=== PATIENT | male | born 1965 | race Caucasian/White ===

== ENCOUNTER 2018-08-09 15:09 | Emergency (ER) | payer BC ==
--- OUTSIDE RECORDS SUMMARY | 2018-08-09 15:23 | XMS REPORT | Continuity of Care Document ---
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 Payers Date Identification Numbers Payment Provider Subscriber Effective: 2017 Policy Number: [id number] [employer] Christiano Hernandez PayID: [id number] [address] [address] [place] Schultz [id number] Advance Directives Description No Information Available Problems Active Problems Provider Date Malignant neoplasm of eye Onset: 12/25/2017 Implantation of mitral valve prosthesis or synthetic Onset: 12/25/2017 device Chronic atrial fibrillation Onset: 02/25/2015 Pure hypercholesterolemia Onset: 04/19/2011 Allergic rhinitis Onset: 04/19/2011 Contact dermatitis Onset: 04/19/2011 Mitral valve disorder Onset: 04/19/2011 Atrial fibrillation Onset: 04/19/2011 Malignant melanoma of eye ANGEL Browning Onset: 07/03/2018 Shigellosis ANGEL Browning Onset: 07/03/2018 Rectal hemorrhage ANGEL Browning Onset: 07/03/2018 Hemorrhoids ANGEL Browning Onset: 07/03/2018 Family History Date Family Member(s) Observation Comments General Father DM Father Hypertension Father Gout Father hyperlipidemia Mother Hypertension Mother Diabetes Mother Hyperlipidemia Siblings 3 Social History Type Date Description Comments Sex Unknown Lives With Girlfriend 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, 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 [employer] ETOH Use Denies alcohol use Tobacco Use Start: Unknown Patient has never smoked Recreational Drug Use Denies Drug Use Smoking Status Reviewed: 07/08/18 Patient has never smoked Exercise Type/Frequency Exercises regularly Allergies, Adverse Reactions, Alerts Active Allergies Reaction Severity Comments Date Rosuvastatin Calcium Free Text 03/15/2018 Fish Oil 03/15/2018 Atorvastatin 03/15/2018 Zmax 07/03/2018 Medications Active Medications SIG Qnty Indications Ordering Provider Date Vitamin C Plus 1 by mouth Devin Tomas, 09/05/2017 500mg every day Tablets Claritin 1 by mouth 30caps J30.9 Devin Tomas 10/25/2011 10mg Capsules every day Digoxin 1 tab by mouth Dariela Sandoval 04/19/2011 250mcg Tablets every day SHANIA Carr Ramipril Unknown 2.5mg Capsules Atenolol 1 by mouth 30tabs Devin Tomas, 50mg Tablets every day Coumadin 1 tab by mouth Unknown 5mg Tablets Mon, Wed, Thur, Sat, Sun History Medications Amoxicillin 1 by mouth twice 20tabs H66.92 Devin 08/01/2017 - 875mg a day MD Genoveva 09/05/2017 Tablets Azithromycin Error, don't fill 6tabs J06.9 Devin 03/21/2016 - 250mg this script will MD Genoveva 06/19/2016 Tablets try amoxicillin Ibuprofen one 4 times a day 30tabs J06.9 Devin 03/21/2016 - 600mg with food MD Genoveva 06/19/2016 Tablets Amoxicillin 1 by mouth three 30caps J06.9 Devin 03/21/2016 - 500mg times a day MD Genoveva 06/19/2016 Capsules Ativan 1/2 tab by mouth 10tabs Devin 03/21/2016 - 1mg Tablets four times a day MD Genoveva 03/21/2016 as needed Ativan 1 tab every 4 30tabs Devin 03/21/2016 - 0.5mg hours if needed MD Genoveva 06/19/2016 Tablets to break an anxiety attack Anusol-HC one suppository 12units K62.5 Devin 06/16/2015 - 25mg inserted into MD Genoveva 08/27/2015 Suppository rectum twice a day for bleeding Azithromycin 2 tablets day one 6tabs J20.9 Devin 03/24/2015 - 250mg then one tablet MD Genoveva 05/27/2015 Tablets day2 thru day 5 Amoxicillin 4 pills 1 hr 30caps Devin 10/26/2014 - 500mg prior to dental MD Genoveva 03/24/2015 Capsules work Valium 1 tab by mouth Jaime 05/15/2012 - 5mg Tablets three times a day Dariela Carr NP 05/15/2012 as needed Ativan 1/2 tab by mouth 10tabs Devin 05/15/2012 - 1mg Tablets four times a day MD Genoveva 10/06/2013 as needed Triamcinolone use 1-2 sprays 16.5units Jaime 10/18/2011 - Acetonide twice a day into Dariela Carr NP 07/03/2018 55mcg/Act each nostril if Aerosol needed Coumadin Jaime, 04/19/2011 - 7.5mg Dariela Carr NP 06/09/2014 Tablets Folic Acid 1 tab by mouth Jaime 04/19/2011 - 1mg every day Dariela Carr NP 10/25/2011 Tablets Claritin 1 po qd 30caps Jaime, 04/19/2011 - 10mg Dariela Carr NP 10/25/2011 Capsules DesDevni Worley 04/19/2011 - 0.05% 12/25/2017 Cream Crestor 1 po qd 30tabs Jaime, - 5mg Tablets Dariela Carr NP 05/15/2012 Miralax 1 scoop in fluid 238units Unknown - [id number] by mouth every 09/05/2017 Powder day as needed Metamucil Free & Unknown - Natural 07/03/2018 43% Powder Chlorhexidine Unknown - Gluconate 07/03/2018 0.12% Solution Immunizations CPT Code Status Date Vaccine Lot # [id number] Given 01/06/2014 Influenza Virus 3Yrs & Over [id number] Given 11/26/2012 Influenza Virus 3Yrs & Over [id number] Given 12/02/2009 Influenza Virus 3Yrs & Over [id number] Given 09/02/2009 Tdap - Tetanus/Diptheria/Acellular Pertussis 20832 Given 01/20/2009 Administration Swine Flu Shot Vital Signs Date Vital Result Comment 07/22/2018 3:13pm Weight 164.44 lb BP Systolic Sitting 118 mmHg BP Diastolic Sitting 50 mmHg 07/03/2018 1:34pm Height 66.6 inches 5'6.60" Weight 160.00 lb BP Systolic Sitting 124 mmHg BP Diastolic Sitting 60 mmHg Respiratory Rate 14 /min Body Temperature 98.8 F BMI (Body Mass Index) 25.4 kg/m2 04/29/2018 4:16pm Weight 157.00 lb BP Systolic Sitting 124 mmHg BP Diastolic Sitting 70 mmHg 02/25/2018 3:18pm Weight 157.00 lb BP Systolic 126 mmHg BP Diastolic 76 mmHg 12/25/2017 3:49pm Weight 156.00 lb BP Systolic 123 mmHg BP Diastolic 78 mmHg 09/18/2017 4:55pm Height 67 inches Weight 152.00 lb Heart Rate 110 /min BP Systolic 128 mmHg BP Diastolic 67 mmHg BMI (Body Mass Index) 23.8 kg/m2 09/05/2017 2:30pm Weight 153.00 lb BP Systolic 140 mmHg BP Diastolic 80 mmHg 08/01/2017 3:41pm Weight 152.00 lb BP Systolic 134 mmHg BP Diastolic 80 mmHg 06/20/2017 3:21pm Height 66.6 inches Weight 154.00 lb Heart Rate 80 /min BP Systolic 134 mmHg BP Diastolic 80 mmHg Respiratory Rate 12 /min Body Temperature 97.6 F BMI (Body Mass Index) 24.4 kg/m2 12/21/2016 3:06pm Weight 154.00 lb BP Systolic 130 mmHg BP Diastolic 80 mmHg 09/19/2016 3:23pm Weight 156.00 lb BP Systolic 130 mmHg BP Diastolic 80 mmHg 06/19/2016 3:24pm Height 66.6 inches Weight 151.00 lb Heart Rate 70 /min BP Systolic 138 mmHg BP Diastolic 80 mmHg Respiratory Rate 12 /min Body Temperature 97.0 F BMI (Body Mass Index) 23.9 kg/m2 03/21/2016 10:40am Weight 159.00 lb Body Temperature 99.6 F 02/24/2016 3:53pm Weight 163.00 lb 11/25/2015 3:30pm Weight 150.00 lb BP Systolic 134 mmHg BP Diastolic 78 mmHg 08/26/2015 4:29pm Weight 145.00 lb BP Systolic 130 mmHg BP Diastolic 74 mmHg 06/30/2015 3:48pm Weight 162.00 lb BP Systolic 130 mmHg BP Diastolic 80 mmHg 06/16/2015 3:21pm Height 60.6 inches Weight 159.00 lb Heart Rate 70 /min Respiratory Rate 14 /min Body Temperature 98.8 F BMI (Body Mass Index) 30.4 kg/m2 05/27/2015 4:02pm Weight 160.00 lb BP Systolic 128 mmHg BP Diastolic 78 mmHg 03/24/2015 10:15am Weight 160.00 lb Heart Rate 121 /min BP Systolic 144 mmHg BP Diastolic 80 mmHg Body Temperature 99.0 F 02/25/2015 4:15pm Weight 157.00 lb BP Systolic 140 mmHg BP Diastolic 80 mmHg 10/26/2014 3:44pm Weight 148.00 lb BP Systolic 134 mmHg BP Diastolic 78 mmHg 06/09/2014 3:46pm Height 60.6 inches Weight 150.00 lb Heart Rate 78 /min BP Systolic 150 mmHg BP Diastolic 80 mmHg Respiratory Rate 14 /min Body Temperature 98.8 F BMI (Body Mass Index) 28.7 kg/m2 01/06/2014 4:04pm Weight 146.00 lb BP Systolic 130 mmHg BP Diastolic 80 mmHg 10/06/2013 3:53pm Weight 151.00 lb BP Systolic 160 mmHg BP Diastolic 80 mmHg 10/06/2013 4:36pm BP Systolic 134 mmHg BP Diastolic 82 mmHg 07/07/2013 4:17pm Weight 154.00 lb BP Systolic 130 mmHg BP Diastolic 80 mmHg 02/27/2013 4:17pm Weight 156.00 lb BP Systolic 130 mmHg BP Diastolic 66 mmHg 11/26/2012 4:04pm Weight 154.00 lb BP Systolic 130 mmHg BP Diastolic 60 mmHg 05/15/2012 3:40pm Height 66.25 inches Weight 147.00 lb BP Systolic 114 mmHg BP Diastolic 70 mmHg BMI (Body Mass Index) 23.5 kg/m2 10/25/2011 3:39pm Weight 160.00 lb BP Systolic 140 mmHg BP Diastolic 84 mmHg 04/19/2011 4:11pm Weight 155.00 lb BP Systolic 140 mmHg BP Diastolic 80 mmHg 04/19/2011 4:14pm Height 66 inches Weight 155.00 lb BP Systolic 140 mmHg BP Diastolic 80 mmHg BMI (Body Mass Index) 25.0 kg/m2 Results Test Date Facility Test Result H/L Range Note Laboratory test 01/02/2018 N2N/CCD Import Atypical Lymph% 7 % 0-7 1 finding Band% 1 % 0-8 Eosinophil% 3 % 0-5 Lymph% 13 % Low 20-42 Monocyte% 13 % High 0-10 Neutrophils% 63 % 33-73 Platelet Estimate Normal RBC Morphology Normal Slide Review Diff Ordered Total Cells Counted 100 #CELLS Basic Metabolic Panel 01/02/2018 N2N/CCD Import Anion Gap 6 mEq/L Low 8- 16 BUN 27 mg/dL High 7-18 BUN/Creat 30.0 ratio Calcium 8.6 mg/dL 8.5-10.1 Carbon Dioxide 27 mmol/L 21-32 Chloride 104 mmol/L 98-107 Creatinine 0.9 mg/dL 0.6-1.3 Glom Filtration Rate, Estimate >60 mL/min Glucose 95 mg/dL 74-106 If >60 mL/min 2 Potassium 4.4 mmol/L 3.5-5.1 Sodium 137 mmol/L 136-145 CBS W/Automated Diff 01/02/2018 N2N/CCD Import Bas% 0.4 % 0-1.1 Baso # 0.04 K/uL 0-0.1 Eo% 2.9 % 0-6.6 Eos # 0.27 K/uL 0-0.5 Hematocrit 39.6 % 38-48 Hemoglobin 13.4 gm/dL 12.8-17 Lymph # 2.18 K/uL 1-4 Lymph % 23.1 % 20-42 Mean Cell Volume 90.0 fl 80-96 Mean Corpuscular HGB 30.5 pg 27-33 Mean Corpuscular HGB Conc 33.8 g/dL 31.7-36 Mean Platelet Volume 9.1 fL 6.6-10.6 Laurel # 1.12 K/uL High 0-0.8 Laurel % 11.9 % High 0-10 Neut# 5.83 K/uL 1.8-7 Neut% 61.7 % 33-73 Platelet Count 266 K/uL 155-360 Red Blood Count 4.40 M/uL 4.2-5.8 Red Cell Distri Width %CV 13.7 % 11.6-15.8 Red Cell Distri Width SD 44.0 fl 36-51 White Blood Count 9.4 K/uL 3.4-10.5 Liver Function Panel 01/02/2018 N2N/CCD Import Alb/Glob 1.0 ratio Albumin 4.0 g/dL 3.4-5 Alkaline Phosphatase 134 U/L High 45-117 Bilirubin,Direct < 0.1 mg/dL 0-0.2 Bilirubin,Indirect 0.2 mg/dL 0-0.9 Bilirubin,Total 0.3 mg/dL 0.2-1 Globulin 4.0 g/dL 1.9-4.3 SGPT/Alt 47 U/L 12-78 Sgot/Ast 31 U/L 15-37 Total Protein 8.0 g/dL 6.4-8.2 Protime 12/20/2017 N2N/CCD Import Anticoagulant Therapy? Yes Date of Last Dose: 12/19/17 Inr 2.8 1 High 0.9-1.1 3 Protime 28.8 s High 12-14.4 Time of Last Dose: 8:00PM Laboratory test finding 04/20/2017 N2N/CCD Import Source: Urine, Clean Cat 4, 5 <See Note> Urine Bilirubin - Dipstick Negative Urine Blood Trace Urine Clarity Clear Urine Color Yellow Urine Glucose - Dipstick Negative mg/dL Urine Ketone Trace mg/dL High Urine Leuk Esterase Negative Urine Nitrite - Dipstick Negative Urine PH 6.0 1 Low 6.5-7.5 Urine Protein - Dipstick 30 mg/dL High Urine Specific Tuttle 1.025 1 1.01-1.03 Urine Urobilinogen - Dipstick 0.2 E.U./dL 0.2-1 Protime 04/17/2017 N2N/CCD Import Inr 0.9 1 0.9-1.1 6, 7 Protime 12.1 s 12-14.4 Protime 07/27/2016 N2N/CCD Import Anticoagulant Therapy? Yes 8 Date of Last Dose: 07/26/16 Inr 2.5 1 High 0.9-1.1 9 Protime 26.5 s High 12-14.4 Time of Last Dose: 2099 03 Protime 06/21/2016 N2N/CCD Import Anticoagulant Therapy? Yes Date of Last Dose: 06/20/2016 Inr 3.8 1 High 0.9-1.1 10 Protime 36.0 s High 12-14.4 Time of Last Dose: 1999 1 Protime 06/05/2016 N2N/CCD Import Inr 4.1 1 High 0.9-1.1 11, 12 Protime 38.8 s High 12-14.4 Protime 02/10/2016 N2N/CCD Import Inr 3.2 1 High 0.9-1.1 13, 14 Protime 31.5 s High 12-14.4 Blood Culture 07/20/2015 N2N/CCD Import Blood Culture Aerobic See Note 15 Blood Culture Anaerobic See Note 16 Blood Culture 07/20/2015 N2N/CCD Import Blood Culture Aerobic See Note 17 Blood Culture Anaerobic See Note 18 Laboratory test 07/20/2015 N2N/CCD Import Digoxin 1.2 ng/mL 0.8-2 finding Laboratory test 07/19/2015 N2N/CCD Import Ua RFX Micro + See Note 19 finding Culture II Urinalysis With 07/19/2015 N2N/CCD Import Urine Bacteria Few [place] Microscopic Urine Bilirubin - Dipstick Negative Urine Blood Small High Urine Clarity Clear Urine Color Yellow Urine Epithelial Cells Very Few [place]/lpf Urine Glucose - Dipstick Negative mg/dL Urine Ketone Negative mg/dL Urine Leuk Esterase Negative Urine Mucus Moderate [place] Urine Nitrite - Dipstick Negative Urine PH 6.0 1 Low 6.5-7.5 Urine Protein - Dipstick Negative mg/dL Urine RBC 2-5 rbc/hpf 0-2 Urine Specific Tuttle 1.025 1 1.01-1.03 Urine Urobilinogen - Dipstick 0.2 E.U./dL 0.2-1 Urine WBC None Seen wbc/hpf 0-7 Laboratory test finding 07/19/2015 N2N/CCD Import CK 109 U/L 39-308 Slide Review . 20 Troponin-I < 0.015 ng/mL 21 CBC W/Automated Diff 07/19/2015 N2N/CCD Import Bas% 0.3 % 0.1-1 Baso # 0.04 K/uL Low 0.1-0.2 Eo% 1.3 % 0-5 Eos # 0.17 K/uL 0-0.5 Hematocrit 39.4 % 38-48 Hemoglobin 12.9 gm/dL 12.8-17 Lymph # 1.44 K/uL Low 1.8-7 Lymph % 10.9 % Low 17-56 Mean Cell Volume 90.6 fl 80-96 Mean Corpuscular HGB 29.7 pg 27-33 Mean Corpuscular HGB Conc 32.7 g/dL 31.7-36 Mean Platelet Volume 9.7 fL 6.6-10.6 Laurel # 1.24 K/uL High 0-0.8 Laurel % 9.4 % 0-10 Neut# 10.27 K/uL High 1.8-7 Neut% 78.1 % High 33-73 Platelet Count 248 K/uL 150-400 Red Blood Count 4.35 M/uL 4.2-5.8 Red Cell Distri Width %CV 14.2 % 11.6-15.8 Red Cell Distri Width SD 46.1 fl 36-51 White Blood Count 13.2 K/uL High 3.4-10.5 Comprehensive Metabolic Panel 07/19/2015 N2N/CCD Import Alb/Glob 0.9 ratio Albumin 3.7 g/dL 3.4-5 Alkaline Phosphatase 149 U/L High 45-117 Anion Gap 5 mEq/L Low 8-16 BUN 20 mg/dL High 7-18 BUN/Creat 22.2 ratio Bilirubin,Total 0.6 mg/dL 0.2-1 Calcium 8.3 mg/dL Low 8.5-10.1 Carbon Dioxide 28 mmol/L 21-32 Chloride 102 mmol/L 98-107 Creatinine 0.9 mg/dL 0.6-1.3 Globulin 4.1 g/dL 1.9-4.3 Glom Filtration Rate, Estimate >60 mL/min Glucose 92 mg/dL 74-106 If >60 mL/min 22 Potassium 4.1 mmol/L 3.5-5.1 SGPT/Alt 188 U/L High 12-78 Sgot/Ast 98 U/L High 15-37 Sodium 135 mmol/L Low 136-145 Total Protein 7.8 g/dL 6.4-8.2 Protime 07/19/2015 N2N/CCD Import Inr 2.3 1 High 0.9-1.1 23 Protime 25.6 s High 12.1-14.9 Basic Metabolic Panel 06/29/2015 N2N/CCD Import Anion Gap 6 mEq/L Low 8- 16 BUN 25 mg/dL High 7-18 BUN/Creat 25.0 ratio Calcium 8.6 mg/dL 8.5-10.1 Carbon Dioxide 27 mmol/L 21-32 Chloride 106 mmol/L 98-107 Creatinine 1.0 mg/dL 0.6-1.3 Glom Filtration Rate, Estimate >60 mL/min Glucose 101 mg/dL 74-106 If >60 mL/min 24 Potassium 4.2 mmol/L 3.5-5.1 Sodium 139 mmol/L 136-145 CBC W/Automated Diff 06/29/2015 N2N/CCD Import Bas% 0.6 % 0.1-1 Baso # 0.05 K/uL Low 0.1-0.2 Eo% 2.2 % 0-5 Eos # 0.19 K/uL 0-0.5 Hematocrit 41.3 % 38-48 Hemoglobin 13.6 gm/dL 12.8-17 Lymph # 2.03 K/uL 1.8-7 Lymph % 23.4 % 17-56 Mean Cell Volume 90.8 fl 80-96 Mean Corpuscular HGB 29.9 pg 27-33 Mean Corpuscular HGB Conc 32.9 g/dL 31.7-36 Mean Platelet Volume 10.1 fL 6.6-10.6 Laurel # 1.01 K/uL High 0-0.8 Laurel % 11.6 % High 0-10 Neut# 5.40 K/uL 1.8-7 Neut% 62.2 % 33-73 Platelet Count 226 K/uL 150-400 Red Blood Count 4.55 M/uL 4.2-5.8 Red Cell Distri Width %CV 14.6 % 11.6-15.8 Red Cell Distri Width SD 47.2 fl 36-51 White Blood Count 8.7 K/uL 3.4-10.5 Protime 12/18/2013 N2N/CCD Import Inr 3.8 1 High 0.9-1.1 25 Protime 36.8 s High 12.1-14.9 Protime 10/23/2013 N2N/CCD Import Inr 3.7 1 High 0.9-1.1 26 Protime 35.8 s High 12-14.4 Protime 08/21/2013 N2N/CCD Import Inr 2.7 1 High 0.9-1.1 27 Protime 28.3 s High 12.1-14.9 Protime 07/24/2013 N2N/CCD Import Inr 2.9 1 High 0.9-1.1 28 Protime 30.0 s High 12.1-14.9 LDL Cholesterol 06/26/2013 N2N/CCD Import Cholesterol 253 mg/dL High 120- 200 Profile HDL Cholesterol 32 mg/dL 29-83 LDL-Cholesterol 174 mg/dL 62-185 Triglycerides 235 mg/dL High 16-231 Liver Function Tests 06/26/2013 N2N/CCD Import Alb/Glob 1.1 ratio Albumin 4.0 g/dL 3.5-5 Alkaline Phosphatase 108 U/L 50-136 Bilirubin,Direct < 0.1 mg/dL Low 0.1-0.4 Bilirubin,Indirect 0.3 mg/dL 0-0.9 Bilirubin,Total 0.4 mg/dL 0.2-1.2 Globulin 3.8 g/dL 1.9-4.3 SGPT/Alt 56 U/L 30-65 Sgot/Ast 34 U/L 16-40 Total Protein 7.8 g/dL 6.3-8 Protime 06/26/2013 N2N/CCD Import Inr 3.0 1 High 0.9-1.1 29 Protime 30.7 s High 12.1-14.9 Protime 04/03/2013 N2N/CCD Import Inr 3.6 1 High 0.9-1.1 30 Protime 35.5 s High 12.1-14.9 Laboratory test 02/05/2013 N2N/CCD Import TSH Reflex FT4 0.90 uIU/mL 0.49-4.67 31 finding and/or FT3 LDL Cholesterol 02/05/2013 N2N/CCD Import Cholesterol 234 mg/dL High 120- 200 Profile HDL Cholesterol 30 mg/dL 29-83 LDL-Cholesterol 184 mg/dL 62-185 Triglycerides 102 mg/dL 16-231 Liver Function Tests 02/05/2013 N2N/CCD Import Alb/Glob 1.0 ratio Albumin 4.0 g/dL 3.5-5 Alkaline Phosphatase 124 U/L 50-136 Bilirubin,Direct < 0.1 mg/dL Low 0.1-0.4 Bilirubin,Indirect 0.3 mg/dL 0-0.9 Bilirubin,Total 0.4 mg/dL 0.2-1.2 Globulin 4.1 g/dL 1.9-4.3 SGPT/Alt 52 U/L 30-65 Sgot/Ast 27 U/L 16-40 Total Protein 8.1 g/dL High 6.3-8 Protime 02/05/2013 N2N/CCD Import Inr 2.5 1 High 0.9-1.1 32 Protime 26.9 s High 12.1-14.9 Protime 01/09/2013 N2N/CCD Import Inr 3.2 1 High 0.9-1.1 33 Protime 32.9 s High 12.1-14.9 Protime 12/26/2012 N2N/CCD Import Inr 3.5 1 High 0.9-1.1 34 Protime 34.7 s High 12.1-14.9 Protime 11/28/2012 N2N/CCD Import Inr 2.6 1 High 0.9-1.1 35 Protime 27.5 s High 12-14.4 Protime 11/14/2012 N2N/CCD Import Inr 2.9 1 High 0.9-1.1 36 Protime 30.0 s High 12.1-14.9 Laboratory test 10/31/2012 N2N/CCD Import Glucose 109 mg/dL 76-115 37 finding LDL Cholesterol 10/31/2012 N2N/CCD Import Cholesterol 251 mg/dL High 120- 200 Profile HDL Cholesterol 29 mg/dL 29-83 LDL-Cholesterol 178 mg/dL 62-185 Triglycerides 221 mg/dL 16-231 Liver Function Tests 10/31/2012 N2N/CCD Import Alb/Glob 1.2 ratio Albumin 4.1 g/dL 3.5-5 Alkaline Phosphatase 108 U/L 50-136 Bilirubin,Direct < 0.1 mg/dL Low 0.1-0.4 Bilirubin,Indirect 0.3 mg/dL 0-0.9 Bilirubin,Total 0.4 mg/dL 0.2-1.2 Globulin 3.5 g/dL 1.9-4.3 SGPT/Alt 51 U/L 30-65 Sgot/Ast 30 U/L 16-40 Total Protein 7.6 g/dL 6.3-8 Protime 10/31/2012 N2N/CCD Import Inr 2.9 1 High 0.9-1.1 38 Protime 30.2 s High 12.1-14.9 Protime 07/11/2012 N2N/CCD Import Inr 2.8 1 High 0.9-1.1 39 Protime 29.5 s High 12-14.4 Protime 06/20/2012 N2N/CCD Import Inr 2.4 1 High 0.9-1.1 40 Protime 26.5 s High 12.1-14.9 Protime 06/06/2012 N2N/CCD Import Inr 2.4 1 High 0.9-1.1 41 Protime 26.3 s High 12-14.4 Protime 05/23/2012 N2N/CCD Import Inr 2.5 1 High 0.9-1.1 42 Protime 26.8 s High 12.1-14.9 Protime 05/09/2012 N2N/CCD Import Inr 2.3 1 High 0.9-1.1 43 Protime 26.0 s High 12-14.4 Protime 12/14/2011 N2N/CCD Import Inr 3.9 1 High 0.9-1.1 44 Protime 38.8 s High 12.1-14.9 Liver Function Tests 12/14/2011 [facility] Import Alb/Glob 1.1 ratio Albumin 4.2 g/dL 3.5-5 Alkaline Phosphatase 89 U/L 50-136 Bilirubin,Direct < 0.1 mg/dL Low 0.1-0.4 Bilirubin,Indirect 0.2 mg/dL 0-0.9 Bilirubin,Total 0.3 mg/dL 0.2-1.2 Globulin 3.7 g/dL 1.9-4.3 SGPT/Alt 97 U/L High 30-65 Sgot/Ast 50 U/L High 16-40 Total Protein 7.9 g/dL 6.3-8 LDL Cholesterol Profile 12/14/2011 [facility] Import Cholesterol 156 mg/dL 120-200 HDL Cholesterol 29 mg/dL 29-83 LDL-Cholesterol 93 mg/dL 62-185 Triglycerides 169 mg/dL 16-231 CBC 12/14/2011 [facility] Import Hematocrit 43.8 % 38-48 Hemoglobin 14.7 gm/dL 12.8-17 Mean Cell Volume 92.4 fl 80-96 Mean Corpuscular HGB 31.0 pg 27-33 Mean Corpuscular HGB Conc 33.6 g/dL 31.7-36 Mean Platelet Volume 9.5 fL 6.6-10.6 Platelet Count 231 K/uL 150-400 Red Blood Count 4.74 M/uL 4.2-5.8 Red Cell Distri Width %CV 13.9 % 11.6-15.8 White Blood Count 7.8 K/uL 3.4-10.5 Protime 05/29/2011 [facility] Import Inr 2.9 1 High 0.9-1.1 45 Inr 2.9 1 High 0.9-1.1 46 Protime 31.3 s High 12.2-15.2 Protime 31.3 s High 12.2-15.2 Laboratory test 05/01/2011 [facility] Import Folate,Hemolysate 10.3 NotEstab.ng/ finding Folate,RBC 750 ng/mL 468-1258 47 Hematocrit 42.6 % 36-50 Basic Metabolic Panel 05/01/2011 [facility] Import Anion Gap 12 mEq/L 8-16 BUN 21 mg/dL 5-23 BUN/Creat 23.3 ratio Calcium 8.7 mg/dL 8.5-10.1 Carbon Dioxide 26 mEq/L 18-29 Chloride 105 mmol/L 98-107 Creatinine 0.9 mg/dL 0.5-1.4 Glom Filtration Rate, Estimate >60 mL/min Glucose 98 mg/dL 76-115 If >60 mL/min 48 Potassium 4.3 mmol/L 3.5-5.1 Sodium 139 mmol/L 136-145 CBC 05/01/2011 N2N/[facility] Import Hematocrit 43.4 % 38-48 Hemoglobin 14.5 gm/dL 12.8-17 Mean Cell Volume 89.7 fl 80-96 Mean Corpuscular HGB 30.0 pg 27-33 Mean Corpuscular HGB Conc 33.4 g/dL 31.7-36 Mean Platelet Volume 9.7 fL 6.6-10.6 Platelet Count 247 K/uL 150-400 Red Blood Count 4.84 M/uL 4.2-5.8 Red Cell Distri Width %CV 14.4 % 11.6-15.8 White Blood Count 7.2 K/uL 3.4-10.5 LDL Cholesterol Profile 05/01/2011 [email or web address] Import Cholesterol 172 mg/dL 120-200 HDL Cholesterol 34 mg/dL 29-83 LDL-Cholesterol 106 mg/dL 62-185 Triglycerides 160 mg/dL 16-231 Liver Function Tests 05/01/2011 [facility] Import Alb/Glob 1.2 ratio Albumin 4.2 g/dL 3.5-5 Alkaline Phosphatase 82 U/L 50-136 Bilirubin,Direct < 0.1 mg/dL Low 0.1-0.4 Bilirubin,Indirect 0.3 mg/dL 0-0.9 Bilirubin,Total 0.4 mg/dL 0.2-1.2 Globulin 3.6 g/dL 1.9-4.3 SGPT/Alt 50 U/L 30-65 Sgot/Ast 33 U/L 16-40 Total Protein 7.8 g/dL 6.3-8 Protime 05/01/2011 N2N/[facility] Import Inr 3.1 1 High 0.9-1.1 49 Protime 32.7 s High 12.2-15.2 1 I48.91 2 Note: Persistent reduction for 3 months or more in an eGFR <60 mL/min/1.73 m2 defines CKD. Patients with eGFR values >/=60 mL/min/1.73 m2 may also have CKD if evidence of persistent proteinuria is present. The original MDRD equation for estimated GFR is not valid for patients less than 18 years of age. Additional information may be found at www.[facility].org. 3 THERAPEUTIC INR RANGE: 2.0 - 3.0 DVT, Pulmonary embolus, prophylaxis against venous thrombosis or systemic embolization in high risk patients. 2.5 - 3.5 Mechanical heart valves 4 POST HEMORRHOID SURG 04/17, SENT BY DR Wilson URINE, CLEAN CATCH 6 CONSULT 04/12/17 12:00 7 THERAPEUTIC INR RANGE: 2.0 - 3.0 DVT, Pulmonary embolus, prophylaxis against venous thrombosis or systemic embolization in high risk patients. 2.5 - 3.5 Mechanical heart valves 8 I48.2 9 THERAPEUTIC INR RANGE: 2.0 - 3.0 DVT, Pulmonary embolus, prophylaxis against venous thrombosis or systemic embolization in high risk patients. 2.5 - 3.5 Mechanical heart valves 10 THERAPEUTIC INR RANGE: 2.0 - 3.0 DVT, Pulmonary embolus, prophylaxis against venous thrombosis or systemic embolization in high risk patients. 2.5 - 3.5 Mechanical heart valves 11 RIGHT ELBOW PAIN 12 THERAPEUTIC INR RANGE: 2.0 - 3.0 DVT, Pulmonary embolus, prophylaxis against venous thrombosis or systemic embolization in high risk patients. 2.5 - 3.5 Mechanical heart valves 13 I34.9 14 THERAPEUTIC INR RANGE: 2.0 - 3.0 DVT, Pulmonary embolus, prophylaxis against venous thrombosis or systemic embolization in high risk patients. 2.5 - 3.5 Mechanical heart valves 15 NO GROWTH: FINAL REPORT 16 NO GROWTH: FINAL REPORT 17 NO GROWTH: FINAL REPORT 18 NO GROWTH: FINAL REPORT 19 07/19/15 [email or web address] Deleted by [facility] 20 Instrument flagged sample for slide review. Less than 10% Bands seen, no other immature WBC's seen. RBC morphology essentially normal. Platelet estimate=NORMAL 21 0.0 - 0.045 ng/mL: Normal 0.046 - 0.5 ng/mL: Suggestive 0.6 - 1.5 ng/mL: Consistent 22 Note: Persistent reduction for 3 months or more in an eGFR <60 mL/min/1.73 m2 defines CKD. Patients with eGFR values >/=60 mL/min/1.73 m2 may also have CKD if evidence of persistent proteinuria is present. The original MDRD equation for estimated GFR is not valid for patients less than 18 years of age. Additional information may be found at [email or web address]. 23 THERAPEUTIC INR RANGE: 2.0 - 3.0 DVT, Pulmonary embolus, prophylaxis against venous thrombosis or systemic embolization in high risk patients. 2.5 - 3.5 Mechanical heart valves 24 Note: Persistent reduction for 3 months or more in an eGFR <60 mL/min/1.73 m2 defines CKD. Patients with eGFR values >/=60 mL/min/1.73 m2 may also have CKD if evidence of persistent proteinuria is present. The original MDRD equation for estimated GFR is not valid for patients less than 18 years of age. Additional information may be found at [email or web address]. 25 THERAPEUTIC INR RANGE: 2.0 - 3.0 DVT, Pulmonary embolus, prophylaxis against venous thrombosis or systemic embolization in high risk patients. 2.5 - 3.5 Mechanical heart valves 26 THERAPEUTIC INR RANGE: 2.0 - 3.0 DVT, Pulmonary embolus, prophylaxis against venous thrombosis or systemic embolization in high risk patients. 2.5 - 3.5 Mechanical heart valves 27 THERAPEUTIC INR RANGE: 2.0 - 3.0 DVT, Pulmonary embolus, prophylaxis against venous thrombosis or systemic embolization in high risk patients. 2.5 - 3.5 Mechanical heart valves 28 THERAPEUTIC INR RANGE: 2.0 - 3.0 DVT, Pulmonary embolus, prophylaxis against venous thrombosis or systemic embolization in high risk patients. 2.5 - 3.5 Mechanical heart valves 29 THERAPEUTIC INR RANGE: 2.0 - 3.0 DVT, Pulmonary embolus, prophylaxis against venous thrombosis or systemic embolization in high risk patients. 2.5 - 3.5 Mechanical heart valves 30 THERAPEUTIC INR RANGE: 2.0 - 3.0 DVT, Pulmonary embolus, prophylaxis against venous thrombosis or systemic embolization in high risk patients. 2.5 - 3.5 Mechanical heart valves 31 QUERY: Reflex add FT3? QUERY: Reflex add FT4? Y 32 THERAPEUTIC INR RANGE: 2.0 - 3.0 DVT, Pulmonary embolus, prophylaxis against venous thrombosis or systemic embolization in high risk patients. 2.5 - 3.5 Mechanical heart valves 33 THERAPEUTIC INR RANGE: 2.0 - 3.0 DVT, Pulmonary embolus, prophylaxis against venous thrombosis or systemic embolization in high risk patients. 2.5 - 3.5 Mechanical heart valves 34 THERAPEUTIC INR RANGE: 2.0 - 3.0 DVT, Pulmonary embolus, prophylaxis against venous thrombosis or systemic embolization in high risk patients. 2.5 - 3.5 Mechanical heart valves 35 THERAPEUTIC INR RANGE: 2.0 - 3.0 DVT, Pulmonary embolus, prophylaxis against venous thrombosis or systemic embolization in high risk patients. 2.5 - 3.5 Mechanical heart valves 36 THERAPEUTIC INR RANGE: 2.0 - 3.0 DVT, Pulmonary embolus, prophylaxis against venous thrombosis or systemic embolization in high risk patients. 2.5 - 3.5 Mechanical heart valves 37 QUERY: Is the Patient Fasting? Y 38 THERAPEUTIC INR RANGE: 2.0 - 3.0 DVT, Pulmonary embolus, prophylaxis against venous thrombosis or systemic embolization in high risk patients. 2.5 - 3.5 Mechanical heart valves 39 THERAPEUTIC INR RANGE: 2.0 - 3.0 DVT, Pulmonary embolus, prophylaxis against venous thrombosis or systemic embolization in high risk patients. 2.5 - 3.5 Mechanical heart valves 40 THERAPEUTIC INR RANGE: 2.0 - 3.0 DVT, Pulmonary embolus, prophylaxis against venous thrombosis or systemic embolization in high risk patients. 2.5 - 3.5 Mechanical heart valves 41 THERAPEUTIC INR RANGE: 2.0 - 3.0 DVT, Pulmonary embolus, prophylaxis against venous thrombosis or systemic embolization in high risk patients. 2.5 - 3.5 Mechanical heart valves 42 THERAPEUTIC INR RANGE: 2.0 - 3.0 DVT, Pulmonary embolus, prophylaxis against venous thrombosis or systemic embolization in high risk patients. 2.5 - 3.5 Mechanical heart valves 43 THERAPEUTIC INR RANGE: 2.0 - 3.0 DVT, Pulmonary embolus, prophylaxis against venous thrombosis or systemic embolization in high risk patients. 2.5 - 3.5 Mechanical heart valves 44 THERAPEUTIC INR RANGE: 2.0 - 3.0 DVT, Pulmonary embolus, prophylaxis against venous thrombosis or systemic embolization in high risk patients. 2.5 - 3.5 Mechanical heart valves 45 THERAPEUTIC INR RANGE: 2.0 - 3.0 DVT, Pulmonary embolus, prophylaxis against venous thrombosis or systemic embolization in high risk patients. 2.5 - 3.5 Mechanical heart valves 46 THERAPEUTIC INR RANGE: 2.0 - 3.0 DVT, Pulmonary embolus, prophylaxis against venous thrombosis or systemic embolization in high risk patients. 2.5 - 3.5 Mechanical heart valves 47 Performed at: RN - [facility] [address] [id number] Valet Runner: Manohar Sam MD, Phone: [phone] Note: Persistent reduction for 3 months or more in an eGFR <60 mL/min/1.73 m2 defines CKD. Patients with eGFR values >/=60 mL/min/1.73 m2 may also have CKD if evidence of persistent proteinuria is present. The original MDRD equation for estimated GFR is not valid for patients less than 18 years of age. Additional information may be found at www.[facility].org. 49 THERAPEUTIC INR RANGE: 2.0 - 3.0 DVT, Pulmonary embolus, prophylaxis against venous thrombosis or systemic embolization in high risk patients. 2.5 - 3.5 Mechanical heart valves Procedures Date Code Description Status 06/03/2018 [id number] Diabetic Retinal Eye Exam Completed 06/19/2016 87625 Pure Tone Hearing Test, Air Completed 10/01/2015 15051 Colonoscopy Flexible Diagnostic Completed 10/01/2015 [id number] Colonoscopy Completed 06/16/2015 41399 Screening Vision Test Completed 06/16/2015 19256 Pure Tone Hearing Test, Air Completed 06/16/2015 77999 Anoscopy Completed 03/24/2015 97598 Noninvasive Ear Or Pulse Oximetry For Oxygen Completed Saturation 03/24/2015 91155 Inhalation [place] For Acute Airway Obstruction Completed W/Nebulizer/Inhaler 06/09/2014 58598 Pure Tone Hearing Test, Air Completed 01/05/2010 27641 Screening Vision Test Completed 01/05/2010 74807 Pure Tone-Air Condition Only Completed Encounters Type Date Location Provider Dx Diagnosis Office Visit 07/03/2018 [facility] ANGEL Browning Z00.01 Encounter for 1:30p general adult medical exam w abnormal findings 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
[2018-08-09 16:07] VITALS: BP 129/78
--- NOTE | 2018-08-09 16:53 | UC ---
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 Diarrhea started sunday night- slowly resolving and bms more soft/formed now. Denies nausea/ vomitting. Denies dysuria. Temp 100.1 on Sunday night- now resolved. " -here w/ his Mom who has detailed history written down. -h/o retinal melanoma, mitral valve repair on warfarin w/ h/o hemorroidectomy. -last colonoscpy 09/26 - negative per Mom. Dr Woo Syr -no abd pain. no fever. diarrhea now resolved. no chills. -very anxious about this. -has appt in Oct w/ Dr Woo for f/u of melanoma to r/o mets. will be having MRI as well. +fatty liver hx. - History of Current Complaint Chief Complaint: UCGI Stated Complaint: DIARRHEA Time Seen by Provider: 08/09/18 16:30 Pain Intensity: 0 - Allergies/Home Medications Allergies/Adverse Reactions: Allergies Allergy/AdvReac Type Severity Reaction Status Date / Time atorvastatin [From Lipitor] Allergy See Comment Verified 08/09/18 15:56 azithromycin [From Zithromax] Allergy See Comment Verified 08/09/18 15:56 fish oil Allergy See Comment Verified 08/09/18 15:56 rosuvastatin [From Crestor] Allergy See Comment Verified 08/09/18 15:56 vancomycin Allergy See Comment Verified 08/09/18 15:56 Home Medications: Home Medications Atenolol TAB* [Tenormin TAB* 50 MG] 1 tab PO DAILY 08/09/18 [History Confirmed 08/09/18] Digoxin TAB* [Lanoxin TAB*] 0.25 mg PO DAILY 08/09/18 [History Confirmed ] LORazepam TAB(*) [Ativan 0.5 MG TAB (*)] 1 tab PO BID 08/09/18 [History Confirmed 08/09/18] Loratadine [Claritin] 10 mg PO DAILY 08/09/18 [History Confirmed 08/09/18] Ramipril CAP* [Altace CAP*] 1 tab DAILY 08/09/18 [History Confirmed 08/09/18] Warfarin TAB(*) [Coumadin TAB(*)] 5 mg PO QPM 08/09/18 [History Confirmed ] PMH/Surg Hx/FS Hx/Imm Hx Previously Healthy: Yes Cardiovascular History: Other - mitral valve repair - Surgical History Surgical History: Yes Surgery Procedure, Year, and Place: mitral valve replacement, appy, hernia repair x2. 2009 hemorrhoids - Family History Known Family History: Positive: Other - no colon ca. + colon polyps - Social History Alcohol Use: None Substance Use Type: None Smoking Status (MU): Never Smoked Tobacco Review of Systems All Other Systems Reviewed And Are Negative: Yes Constitutional: Positive: Negative Skin: Positive: Negative Eyes: Positive: Negative ENT: Positive: Negative Respiratory: Positive: Negative Cardiovascular: Positive: Negative Gastrointestinal: Positive: Diarrhea Genitourinary: Positive: Negative Motor: Positive: Negative Neurovascular: Positive: Negative Musculoskeletal: Positive: Negative Neurological: Positive: Negative Psychological: Positive: Negative Is Patient Immunocompromised?: No Physical Exam Triage Information Reviewed: Yes Appearance: Well-Appearing, No Pain Distress, Well-Nourished - quite anxious but very pleasant Vital Signs: Initial Vital Signs Temp 98.2 F 08/09/18 15:57 Pulse 110 08/09/18 15:57 Resp 16 08/09/18 15:57 BP 129/78 08/09/18 15:57 Pulse Ox 99 08/09/18 15:57 Vital Signs Reviewed: Yes Eye Exam: Normal Eyes: Positive: Conjunctiva Clear ENT: Positive: Pharyngeal erythema Neck exam: Normal Neck: Positive: Supple, Nontender, No Lymphadenopathy Respiratory Exam: Normal Respiratory: Positive: Lungs clear Cardiovascular Exam: Normal Cardiovascular: Positive: RRR, Tachycardia - slight at 104 MD check, Murmur:Dys: Grade _?_/ Abdominal Exam: Normal Abdomen Description: Positive: Nontender, Soft. Negative: No Organomegaly, Distended, Guarding, Hepatomegaly, McBurney's Point Tenderness, Peritoneal Signs Bowel Sounds: Positive: Present Musculoskeletal Exam: Normal Neurological Exam: Normal Psychological Exam: Normal Skin Exam: Normal Skin: Negative: Rashes Abd Pain Male Course/Dx - Differential Dx/Clinical Impression Differential Diagnosis/HQI/PQRI: Other - viral infection, hemorrhodis Provider Diagnosis: Rectal bleeding, Diarrhea Discharge - Sign-Out/Discharge Documenting (check all that apply): Patient Departure All imaging exams completed and their final reports reviewed: No Studies - Discharge Plan Condition: Stable Disposition: HOME Patient Education Materials: Hemorrhoids (DC), Gastroenteritis (ED) Referrals: Lilly Saini PA [Primary Care Provider] - Additional Instructions: We discussed that it is very reassuring that the diarrhea is almost resolved. The bleeding can very well be due to a hemorroid as you have had these before. The fact that you had a reportedly negative colonopscopy in 2016 is reassuring. You did not that you are seeing Dr Woo in October for evaluation for the melanoma. Please call Dr Woo's office for follow up in the next few weeks for the bleeding. - Billing Disposition and Condition Condition: STABLE Disposition: Home
== END 2018-08-09 17:01 | disposition home or self-care (01) ==
LOC: UCCORT 15:09
DX: K62.5 Hemorrhage of anus and rectum (principal); R19.7 Diarrhea, unspecified; Z79.01 Long term (current) use of anticoagulants; Z95.2 Presence of prosthetic heart valve; Z79.899 Other long term (current) drug therapy; Z88.8 Allergy status to other drugs, medicaments and biological substances
CPT/HCPCS: 99201; G0463